=== PATIENT | male | born 1965 | race African-American/Black ===

== ENCOUNTER 2019-10-17 11:07 | Emergency (ER) | payer MEDICARE, MEDICAID ==
[~2019-10-17] VITALS: Ht 170.2 cm; Wt 59.0 kg
[~2019-10-17 11:07] MED LIST: ALBUTEROL; BENAZEPRIL PO; CINA30 PO; CLONIDINE PO; FOLI1TAB33 PO; FOS1G PO; HYDR-3927 PO; MINO2.5T2 PO
[2019-10-17] MEDS ORDERED: SODIUM CHLORIDE 0.9% 1000ML BAG (SEPSIS BOLUS) IV ONE (12:00)
[2019-10-17 12:29] LABS: BASOPHILS % 1.7 % (0.0-2.0); EOSINOPHILS % 5.8 % (0.0-5.0); HEMATOCRIT. 32.4 % (42.0-52.0); HEMOGLOBIN. 10.9 g/dL (14.0-18.0); LYMPHOCYTES % 9.7 % (20.0-50.0); MEAN CORPUSCULAR HEMOGLOBIN 30.2 pg (28.0-32.0); MEAN CORPUSCULAR VOLUME 89.6 fL (80.0-94.0); MEAN PLATELET VOLUME 8.3 fl (7.4-10.4); MONOCYTES % 10.1 % (2.0-8.0); NEUTROPHILS % 72.7 % (40.0-76.0); PLATELET 236 x1000/uL (130-400); RED BLOOD CELL COUNT 3.61 mill/uL (4.7-6.1); RED CELL DISTRIBUTION WIDTH 16.4 % (11.6-14.6)
[2019-10-17 12:37] LABS: CHLORIDE 98 mEq/L (98-107)
[2019-10-17 12:41] LABS: D-DIMER 2.08 mg/L FEU (<0.50); ETHANOL BLOOD < 10 mg/dL; PARTIAL THROMBOPLASTIN TIME 29.2 sec (23.4-31.0); PROTHROMBIN TIME 10.1 sec (9.6-11.0)
[2019-10-17] MEDS ORDERED: ASPIRIN 81MG TABLET PO ONE (15:15)
[2019-10-17 16:23] VITALS: BP 145/76
[2019-10-17] MEDS ORDERED: ONDANSETRON HCL 4MG/2ML INJ IV PRN (16:30)
[2019-10-17] MEDS ORDERED: ACETAMINOPHEN 325MG TABLET PO PRN (16:30)
[2019-10-17] MEDS ORDERED: HEPARIN 5000 UNITS/ML VIAL SUBCUT SCH (21:00)
[2019-11-02] MEDS ORDERED: CALC667C MT (10:33)
[2019-11-02] MEDS ORDERED: ALBU6.7H9 INH (10:33)
[2019-11-05] MEDS ORDERED: LEVO500T2 MT (13:37)
== END 2019-10-17 16:25 | disposition left against medical advice (07) ==
LOC: ER 11:07
DX: R00.0 Tachycardia, unspecified (principal); R00.2 Palpitations; R06.02 Shortness of breath; I12.0 Hypertensive chronic kidney disease with stage 5 chronic kidney disease or end stage renal disease; N18.6 End stage renal disease; Z99.2 Dependence on renal dialysis; J45.909 Unspecified asthma, uncomplicated; Z91.041 Radiographic dye allergy status; Z91.040 Latex allergy status; Z91.048 Other nonmedicinal substance allergy status
CPT/HCPCS: 36415; 71045; 78582; 80053; 80320; 83605; 83735; 83880; 84145; 84484; 85025; 85379; 85610; 85730; 87040; 87086; 93005; 93970; 99284; A9540; A9558; J7030; G0480

== ENCOUNTER 2023-07-06 21:03 | Inpatient (IN) | payer MEDICARE, MEDICAID ==
[~2023-07-06] VITALS: Ht 165.1 cm; Wt 59.4 kg
[~2023-07-06 21:03] MED LIST changes: +ALBU6.7H3 INH; -ALBUTEROL; +APIX5TAB PO; +CALC667C MT; -CLONIDINE PO; +DILT-27 PO; -FOS1G PO
[2023-07-06] MEDS ORDERED: ALBUTEROL (0.083%) 2.5MG/3ML NEB HHN STA (21:21)
[2023-07-06] MEDS ORDERED: IPRATROPIUM BROMIDE (0.02%) 0.5MG/2.5ML NEB HHN STA (21:21)
[2023-07-06 21:46] LABS: BASOPHILS % 0.7 % (0.0-2.0); EOSINOPHILS % 2.7 % (0.0-5.0); HEMATOCRIT. 28.4 % (42.0-52.0); HEMOGLOBIN. 9.4 g/dL (14.0-18.0); LYMPHOCYTES % 9.3 % (20.0-50.0); MEAN CORPUSCULAR HEMOGLOBIN 30.2 pg (28.0-32.0); MEAN CORPUSCULAR VOLUME 91.6 fL (80.0-94.0); MEAN PLATELET VOLUME 8.5 fl (7.4-10.4); MONOCYTES % 12.3 % (2.0-8.0); PLATELET 338 x1000/uL (130-400); RED CELL DISTRIBUTION WIDTH 17.5 % (11.6-14.6); WHITE BLOOD COUNT 9.1 x1000/uL (4.5-11.0)
[2023-07-06 21:48] LABS: CHLORIDE 94 mEq/L (98-107); INDEX HEMOLYSI 1 (1-3); INDEX ICTERIC 1 (1-4); INDEX LIPEMIC 1 (1-3); SODIUM 132 mEq/L (136-145)
[2023-07-06 21:53] LABS: INR 1.3; PARTIAL THROMBOPLASTIN TIME 26.5 sec (23.4-31.0); PROTHROMBIN TIME 13.7 sec (9.6-11.0)
[2023-07-06 22:11] LABS: ALANINE AMINOTRANSFERASE 34 IU/L (13-61); ALBUMIN 3.4 g/dL (3.4-5.0); ASPARTATE AMINOTRANSFERASE 45 IU/L (15-37); BILIRUBIN TOTAL 0.9 mg/dL (0.1-1.0); CALCIUM 8.5 mg/dL (8.5-10.1); CARBON DIOXIDE 24 mEq/L (21-32); GLUCOSE 85 mg/dL (70-105); PROTEIN TOTAL 6.9 g/dL (6.0-8.3); UREA NITROGEN BLOOD 56 mg/dL (7-21)
[2023-07-06 22:19] LABS: TROPONIN I HIGH SENSITIVITY 157 ng/L (<78)
[2023-07-06 22:20] VITALS: PULSE 110; RESP 18; O2SAT 99
[2023-07-06 22:20] LABS: NT PRO B-TYPE NATRIURETIC PEP > 175000 pg/mL (5-125)
[2023-07-06 23:47] LABS: TROPONIN I HIGH SENSITIVITY 158 ng/L (<78)
[2023-07-07] VITALS (12 sets, daily range): BP systolic 108–162; BP diastolic 64–101; PULSE 96–112; RESP 16–20; TEMP 97.8–100; O2SAT 99
[2023-07-07] MEDS ORDERED: GUAIFENESIN 200MG/10ML SUGAR FREE UDC PO PRN (02:00)
[2023-07-07] MEDS ORDERED: CLONIDINE 0.1MG TABLET PO PRN (02:00)
[2023-07-07] MEDS ORDERED: IPRATROPIUM/ALBUTEROL 0.5-3(2.5)MG/3ML NEB HHN PRN (02:00)
[2023-07-07] MEDS ORDERED: ACETAMINOPHEN 325MG TABLET PO PRN ×2 (02:00)
[2023-07-07] MEDS ORDERED: DOCUSATE SODIUM 100MG CAPSULE PO PRN (02:00)
[2023-07-07 08:19] LABS: INDEX HEMOLYSI 1 (1-3); INDEX ICTERIC 1 (1-4); INDEX LIPEMIC 1 (1-3)
[2023-07-07 08:20] LABS: INDEX HEMOLYSI 1 (1-3)
[2023-07-07 08:31] LABS: CREATINE KINASE 79 IU/L (39-308); CREATINE KINASE MB FRACTION < 1.0 ng/mL (0.5-3.6); IRON 32 ug/dL (50-175); TOTAL IRON BINDING CAPACITY 158 ug/dL (250-450)
[2023-07-07 08:37] LABS: PHOSPHORUS 8.1 mg/dL (2.5-4.9); TROPONIN I HIGH SENSITIVITY 160 ng/L (<78)
[2023-07-07 08:49] LABS: VITAMIN B12 SERUM 1406 pg/mL (211-911)
[2023-07-07] MEDS: APIXABAN 2.5 MG TABLET PO SCH ×2 (09:00→18:28)
[2023-07-07] MEDS ORDERED: PANTOPRAZOLE SODIUM 40 MG/VIAL IV SCH (09:00)
[2023-07-07] MEDS ORDERED: DILTIAZEM HCL 120MG CAPSULE ER 24HR PO SCH (09:00)
[2023-07-07] MEDS: CALCIUM ACETATE 667MG CAPSULE PO SCH ×2 (12:27→18:29)
[2023-07-07 13:30] LABS: FERRITIN 2910 ng/mL (22-322)
[2023-07-07 18:17] LABS: HEMATOCRIT 25.1 % (42.0-52.0); HEMOGLOBIN 8.4 g/dL (14.0-18.0); MEAN CORPUSCULAR HEMOGLOBIN 29.8 pg (28.0-32.0); MEAN CORPUSCULAR HGB CONC 33.4 g/dL (31.0-37.0); MEAN CORPUSCULAR VOLUME 89.1 fL (80.0-94.0); PLATELET 310 x1000/uL (130-400); RED BLOOD CELL COUNT 2.82 mill/uL (4.7-6.1); RED CELL DISTRIBUTION WIDTH 17.3 % (11.6-14.6); WHITE BLOOD COUNT 9.1 x1000/uL (4.5-11.0)
[2023-07-07 18:33] LABS: CHLORIDE 93 mEq/L (98-107); INDEX HEMOLYSI 1 (1-3); INDEX ICTERIC 1 (1-4); INDEX LIPEMIC 1 (1-3); SODIUM 132 mEq/L (136-145)
[2023-07-07 18:49] LABS: ALANINE AMINOTRANSFERASE 81 IU/L (13-61); ALBUMIN 3.3 g/dL (3.4-5.0); ASPARTATE AMINOTRANSFERASE 105 IU/L (15-37); BILIRUBIN TOTAL 1.1 mg/dL (0.1-1.0); CALCIUM 9.1 mg/dL (8.5-10.1); CARBON DIOXIDE 24 mEq/L (21-32); GLUCOSE 79 mg/dL (70-105); PROTEIN TOTAL 6.3 g/dL (6.0-8.3); UREA NITROGEN BLOOD 64 mg/dL (7-21)
[2023-07-07 18:50] LABS: CREATINE KINASE MB FRACTION 1.2 ng/mL (0.5-3.6)
[2023-07-07 19:04] LABS: CREATININE 8.9 mg/dL (0.6-1.3); HEPATITIS B SURFACE ANTIGEN NEGATIVE; PHOSPHORUS 8.2 mg/dL (2.5-4.9)
[2023-07-07 19:32] LABS: HEPATITIS B CORE AB IGM NEGATIVE; HEPATITIS C VIR.AB 0.12 INDEXVAL (0.00-0.80)
[2023-07-07 19:34] LABS: HEPATITIS A AB IGM NEGATIVE (NEGATIVE)
[2023-07-07] MEDS ORDERED: MINOXIDIL 2.5MG TABLET PO SCH (21:00)
[2023-07-07] MEDS ORDERED: EPOETIN ALFA-EPBX 4,000 UNIT/ML VIAL SUBCUT SCH (21:00)
[2023-07-07] MEDS ORDERED: BENAZEPRIL 40 MG PO SCH (21:00)
[2023-07-07] MEDS ORDERED: BENAZEPRIL 10MG TABLET PO SCH (21:00)
[2023-07-08 04:00] VITALS: BP 118/65; PULSE 75; RESP 18; TEMP 98.1
[2023-07-08 06:56] LABS: BASOPHILS % 1.9 % (0.0-2.0); EOSINOPHILS % 3.5 % (0.0-5.0); HEMATOCRIT. 25.4 % (42.0-52.0); HEMOGLOBIN. 8.8 g/dL (14.0-18.0); LYMPHOCYTES % 8.4 % (20.0-50.0); MEAN CORPUSCULAR HEMOGLOBIN 30.8 pg (28.0-32.0); MEAN CORPUSCULAR HGB CONC 34.7 g/dL (31.0-37.0); MEAN CORPUSCULAR VOLUME 88.7 fL (80.0-94.0); MEAN PLATELET VOLUME 8.7 fl (7.4-10.4); MONOCYTES % 11.9 % (2.0-8.0); NEUTROPHILS % 74.3 % (40.0-76.0); PLATELET 331 x1000/uL (130-400); RED BLOOD CELL COUNT 2.87 mill/uL (4.7-6.1); RED CELL DISTRIBUTION WIDTH 17.3 % (11.6-14.6); WHITE BLOOD COUNT 7.7 x1000/uL (4.5-11.0)
[2023-07-08 07:25] LABS: ALANINE AMINOTRANSFERASE 75 IU/L (13-61); ALBUMIN 3.1 g/dL (3.4-5.0); ASPARTATE AMINOTRANSFERASE 75 IU/L (15-37); BILIRUBIN TOTAL 0.9 mg/dL (0.1-1.0); CALCIUM 9.2 mg/dL (8.5-10.1); CARBON DIOXIDE 26 mEq/L (21-32); CHLORIDE 97 mEq/L (98-107); CHOLESTEROL 106 mg/dL (<200); GLUCOSE 84 mg/dL (70-105); HDL CHOLESTEROL 41 mg/dL (40-59); INDEX HEMOLYSI 1 (1-3); INDEX ICTERIC 1 (1-4); INDEX LIPEMIC 1 (1-3); LDL CHOLESTEROL 50 mg/dL (5-100); PHOSPHORUS 6.7 mg/dL (2.5-4.9); POTASSIUM 3.9 mEq/L (3.5-5.1); PROTEIN TOTAL 6.3 g/dL (6.0-8.3); SODIUM 134 mEq/L (136-145); T4 FREE 1.35 ng/dL (0.76-1.46); TRIGLYCERIDE 67 mg/dL (0-150); UREA NITROGEN BLOOD 50 mg/dL (7-21)
[2023-07-08] MEDS ORDERED: CINACALCET HCL 30MG TABLET PO SCH (09:00)
[2023-07-08] MEDS ORDERED: FOLIC ACID/VITAMIN B COMP W-C TABLET PO SCH (09:00)
[2023-07-08] MEDS ORDERED: FOLIC ACID PO SCH (09:00)
[2023-07-08] MEDS ORDERED: VITAMIN B COMP W C PO SCH (09:00)
[2023-07-08 09:54] LABS: CREATININE 7.5 mg/dL (0.6-1.3)
== END 2023-07-08 07:20 | disposition left against medical advice (07) | DRG 280 ==
LOC: ER 21:03 → MICUSO 23:29 → EDBEDREQ 23:47 → EDBEDREQTM 23:47 → 8WST 07-07 14:31
PROVIDERS: ADMIT Internal Medicine; ATTEND Internal Medicine
PROC: 5A1D70Z Performance of Urinary Filtration, Intermittent, Less than 6 Hours Per Day (ICD-10-PCS; principal; 2023-07-07)
DX: I13.2 Hypertensive heart and chronic kidney disease with heart failure and with stage 5 chronic kidney disease, or end stage renal disease (principal); I21.A1 Myocardial infarction type 2; I50.23 Acute on chronic systolic (congestive) heart failure; N18.6 End stage renal disease; I31.39 Other pericardial effusion (noninflammatory); I48.20 Chronic atrial fibrillation, unspecified; J45.901 Unspecified asthma with (acute) exacerbation; D63.8 Anemia in other chronic diseases classified elsewhere; D64.89 Other specified anemias; Z53.29 Procedure and treatment not carried out because of patient's decision for other reasons; Z82.49 Family history of ischemic heart disease and other diseases of the circulatory system; Z99.2 Dependence on renal dialysis; Z79.899 Other long term (current) drug therapy; Z86.718 Personal history of other venous thrombosis and embolism; Z79.01 Long term (current) use of anticoagulants; Z91.041 Radiographic dye allergy status; Z91.040 Latex allergy status
CPT/HCPCS: 36415; 71045; 80053; 80061; 82550; 82553; 82607; 82728; 83540; 83550; 83735; 83880; 84100; 84439; 84443; 84484; 85025; 85027; 85379; 86705; 86709; 86803; 87340; 90935; 93005; 93970; 94640; 99285; C9113; J0885

== ENCOUNTER 2023-10-16 11:51 | Emergency (ER) | payer MEDICARE, MEDICAID ==
[~2023-10-16] VITALS: Ht 170.2 cm; Wt 58.0 kg
[2023-10-16 12:14] VITALS: BP 107/75; O2SAT 96
[2023-10-16] MEDS ORDERED: SULF1TAB48 MT (15:49)
[2023-10-16 16:37] VITALS: PULSE 98; RESP 18; TEMP 98.5
== END 2023-10-16 16:39 | disposition home or self-care (01) ==
LOC: ER 12:00
DX: L97.519 Non-pressure chronic ulcer of other part of right foot with unspecified severity (principal); E11.9 Type 2 diabetes mellitus without complications; I48.91 Unspecified atrial fibrillation; I10 Essential (primary) hypertension; Z79.899 Other long term (current) drug therapy; Z91.040 Latex allergy status
CPT/HCPCS: 99281; 99283

== ENCOUNTER 2023-10-28 09:59 | Inpatient (IN) | payer MEDICARE, MEDICAID ==
[~2023-10-28] VITALS: Ht 162.6 cm; Wt 57.6 kg
[~2023-10-28 09:59] MED LIST changes: +SULF1TAB48 MT
[2023-10-28 10:03] VITALS: O2SAT 100
[2023-10-28] MEDS ORDERED: VANCOMYCIN 1GM PMX (XELLIA) 200 ML IV SCH (10:15)
[2023-10-28] MEDS ORDERED: PIPERACILLIN/TAZOBACTAM 3.375GM/50ML PREMIX IV ONE (10:15)
[2023-10-28] MEDS ORDERED: VANCOMYCIN 1G PREMIX 200 ML IV NR (10:30)
[2023-10-28 11:00] LABS: HEMATOCRIT. 32.1 % (42.0-52.0); HEMOGLOBIN. 10.1 g/dL (14.0-18.0); MEAN CORPUSCULAR HEMOGLOBIN 29.1 pg (28.0-32.0); MEAN CORPUSCULAR HGB CONC 31.4 g/dL (31.0-37.0); MEAN CORPUSCULAR VOLUME 92.4 fL (80.0-94.0); MEAN PLATELET VOLUME 7.9 fl (7.4-10.4); PLATELET 249 x1000/uL (130-400); RED BLOOD CELL COUNT 3.47 mill/uL (4.7-6.1); RED CELL DISTRIBUTION WIDTH 19.7 % (11.6-14.6)
[2023-10-28] MEDS ORDERED: PIPERACILLIN/TAZ 3.375G PREMIX 50 ML IV NR ×2 (11:00→23:45)
[2023-10-28 11:01] LABS: DIFFERENTIAL COMMENT 1
[2023-10-28 11:29] LABS: ALANINE AMINOTRANSFERASE 23 IU/L (10-49); ALBUMIN 3.4 g/dL (3.2-4.8); ASPARTATE AMINOTRANSFERASE 79 IU/L (<34); BILIRUBIN TOTAL 0.8 mg/dL (0.1-1.0); CARBON DIOXIDE 22 mEq/L (21-32); CHLORIDE 100 mEq/L (98-107); GLUCOSE 52 mg/dL (70-105); POTASSIUM 4.7 mEq/L (3.5-5.1); PROTEIN TOTAL 6.6 g/dL (6.0-8.3); SODIUM 135 mEq/L (136-145); UREA NITROGEN BLOOD 63 mg/dL (9-23)
[2023-10-28 11:42] LABS: CREATININE 8.4 mg/dL (0.6-1.3)
[2023-10-28 11:44] LABS: ANISOCYTOSIS 2+; PLATELET ESTIMATE NORMAL
[2023-10-28] MEDS ORDERED: ONDANSETRON HCL 4MG/2ML INJ IV PRN (14:15)
[2023-10-28] MEDS ORDERED: CLONIDINE 0.1MG TABLET PO PRN (14:15)
[2023-10-28] MEDS ORDERED: IPRATROPIUM/ALBUTEROL 0.5-3(2.5)MG/3ML NEB HHN PRN (14:15)
[2023-10-28] MEDS ORDERED: DIPHENHYDRAMINE 50MG/ML VIAL IV PRN (14:15)
[2023-10-28] MEDS ORDERED: NALOXONE HCL 0.4MG/ML VIAL IV PRN (15:00)
[2023-10-28] MEDS ORDERED: VANCOMYCIN 500MG PREMIX 100 ML IV NR (15:00)
[2023-10-28 16:26] LABS: HEPATITIS A AB IGM NEGATIVE (Negative); HEPATITIS B CORE AB IGM NEGATIVE (Negative); HEPATITIS B SURFACE ANTIGEN NEGATIVE (Negative); HEPATITIS C AB NON REACTIVE (Neg) (Negative)
[2023-10-28] MEDS ORDERED: PIPERACILLIN/TAZOBACTAM 3.375 G in DEXTROSE 5% WATER 50 ML IV SCH (21:00)
[2023-10-28] MEDS: MORPHINE SULFATE 2 MG/ML CPJ (NOT FOR IM USE) IV PRN (22:10)
[2023-10-29] VITALS (11 sets, daily range): BP systolic 74–147; BP diastolic 44–76; PULSE 80–125; RESP 16–24; TEMP 96.6–98.8
[2023-10-29 05:57] LABS: HEMATOCRIT. 31.2 % (42.0-52.0); HEMOGLOBIN. 10.2 g/dL (14.0-18.0); MEAN CORPUSCULAR HEMOGLOBIN 29.5 pg (28.0-32.0); MEAN CORPUSCULAR HGB CONC 32.5 g/dL (31.0-37.0); MEAN CORPUSCULAR VOLUME 90.6 fL (80.0-94.0); MEAN PLATELET VOLUME 7.9 fl (7.4-10.4); PLATELET 249 x1000/uL (130-400); RED BLOOD CELL COUNT 3.45 mill/uL (4.7-6.1); RED CELL DISTRIBUTION WIDTH 19.1 % (11.6-14.6); WHITE BLOOD COUNT 10.7 x1000/uL (4.5-11.0)
[2023-10-29 05:58] LABS: ALANINE AMINOTRANSFERASE 19 IU/L (10-49); ALBUMIN 3.2 g/dL (3.2-4.8); ASPARTATE AMINOTRANSFERASE 52 IU/L (<34); BILIRUBIN TOTAL 0.7 mg/dL (0.1-1.0); CALCIUM 9.5 mg/dL (8.7-10.4); CARBON DIOXIDE 18 mEq/L (21-32); CHLORIDE 100 mEq/L (98-107); GLUCOSE 67 mg/dL (70-105); POTASSIUM 5.3 mEq/L (3.5-5.1); PROTEIN TOTAL 6.2 g/dL (6.0-8.3); SODIUM 136 mEq/L (136-145); UREA NITROGEN BLOOD 83 mg/dL (9-23)
[2023-10-29 06:19] LABS: DIFFERENTIAL COMMENT 1
[2023-10-29 06:23] LABS: CREATININE 8.9 mg/dL (0.6-1.3)
[2023-10-29] MEDS ORDERED: PIPERACILLIN/TAZOBACTAM 3.375 G in DEXTROSE 5% WATER 50 ML IV SCH ×2 (09:00→21:00)
[2023-10-29 09:54] LABS: ANISOCYTOSIS 1+; PLATELET ESTIMATE NORMAL
[2023-10-29] MEDS ORDERED: HYDROCODONE/ACETAMINOPHEN 5/325MG TABLET PO PRN (10:00)
[2023-10-29] MEDS ORDERED: PIPERACILLIN/TAZ 3.375G PREMIX 50 ML IV SCH (10:00)
[2023-10-29] MEDS: MORPHINE SULFATE 2 MG/ML CPJ (NOT FOR IM USE) IV PRN (11:26)
[2023-10-29] MEDS ORDERED: OXYCODONE HCL/ACETAMINOPHEN 5/325MG TABLET PO PRN (13:00)
[2023-10-29] MEDS: PIPERACILLIN/TAZOBACTAM 3.375 G in DEXTROSE 5% WATER 50 ML IV SCH ×2 (14:06→20:08)
[2023-10-29] MEDS: MORPHINE SULFATE 4 MG/ML CPJ (NOT FOR IM USE) IV PRN ×2 (17:57→23:05)
[2023-10-30] VITALS: BP 102/58; PULSE 99; RESP 19; TEMP 98.4
[2023-10-30 04:00] VITALS: BP 118/62; PULSE 102; RESP 18; TEMP 97.8
[2023-10-30] MEDS: MORPHINE SULFATE 4 MG/ML CPJ (NOT FOR IM USE) IV PRN (06:38)
[2023-10-30 07:44] LABS: HEMATOCRIT. 29.6 % (42.0-52.0); HEMOGLOBIN. 9.5 g/dL (14.0-18.0); MEAN CORPUSCULAR HEMOGLOBIN 29.2 pg (28.0-32.0); MEAN CORPUSCULAR HGB CONC 32.2 g/dL (31.0-37.0); MEAN CORPUSCULAR VOLUME 90.6 fL (80.0-94.0); PLATELET 230 x1000/uL (130-400); RED BLOOD CELL COUNT 3.26 mill/uL (4.7-6.1); RED CELL DISTRIBUTION WIDTH 19.9 % (11.6-14.6); WHITE BLOOD COUNT 12.4 x1000/uL (4.5-11.0)
[2023-10-30 08:00] VITALS: BP 95/41; PULSE 120; RESP 20; TEMP 98.1
[2023-10-30 08:10] LABS: DIFFERENTIAL COMMENT 1
[2023-10-30] MEDS: PIPERACILLIN/TAZOBACTAM 3.375 G in DEXTROSE 5% WATER 50 ML IV SCH (09:00)
[2023-10-30 09:14] LABS: CALCIUM 8.9 mg/dL (8.7-10.4); POTASSIUM 4.2 mEq/L (3.5-5.1)
[2023-10-30] MEDS ORDERED: VANCOMYCIN 750MG PREMIX 150 ML IV NR (12:00)
[2023-10-30 16:26] LABS: ANISOCYTOSIS 2+; PLATELET ESTIMATE NORMAL
== END 2023-10-30 13:33 | DRG 299 ==
LOC: ER 09:59 → 6EST 11:22 → EDBEDREQ 11:24 → ENRESERV 10-29 08:00 → ER 10-29 10:21
PROVIDERS: ADMIT Internal Medicine; ATTEND Internal Medicine
PROC: 5A1D70Z Performance of Urinary Filtration, Intermittent, Less than 6 Hours Per Day (ICD-10-PCS; 2023-10-29)
PROC: 0BH17EZ Insertion of Endotracheal Airway into Trachea, Via Natural or Artificial Opening (ICD-10-PCS; principal; 2023-10-30)
PROC: 5A12012 Performance of Cardiac Output, Single, Manual (ICD-10-PCS; 2023-10-30)
DX: E11.52 Type 2 diabetes mellitus with diabetic peripheral angiopathy with gangrene (principal); J18.9 Pneumonia, unspecified organism; N18.6 End stage renal disease; I48.20 Chronic atrial fibrillation, unspecified; I31.39 Other pericardial effusion (noninflammatory); I12.0 Hypertensive chronic kidney disease with stage 5 chronic kidney disease or end stage renal disease; I70.221 Atherosclerosis of native arteries of extremities with rest pain, right leg; S91.301A Unspecified open wound, right foot, initial encounter; J45.909 Unspecified asthma, uncomplicated; I48.0 Paroxysmal atrial fibrillation; D64.9 Anemia, unspecified; E11.22 Type 2 diabetes mellitus with diabetic chronic kidney disease; E11.621 Type 2 diabetes mellitus with foot ulcer; E11.42 Type 2 diabetes mellitus with diabetic polyneuropathy; I35.0 Nonrheumatic aortic (valve) stenosis; L97.519 Non-pressure chronic ulcer of other part of right foot with unspecified severity; Z99.2 Dependence on renal dialysis; Z79.01 Long term (current) use of anticoagulants; Z79.899 Other long term (current) drug therapy; Z82.49 Family history of ischemic heart disease and other diseases of the circulatory system; Z86.718 Personal history of other venous thrombosis and embolism; Z87.891 Personal history of nicotine dependence; Z91.040 Latex allergy status; Z91.041 Radiographic dye allergy status; Z95.2 Presence of prosthetic heart valve; X58.XXXA Exposure to other specified factors, initial encounter; Y93.89 Activity, other specified; Y92.89 Other specified places as the place of occurrence of the external cause; Y99.8 Other external cause status
CPT/HCPCS: 36415; 71045; 73630; 80048; 80053; 80202; 82962; 85025; 86705; 86709; 86850; 86900; 87340; 90935; 93005; 93922; 93970; 99285; J2270; J2543; J3370; J7060